=== PATIENT | male | born 1995 | race Caucasian/White ===

== ENCOUNTER 2017-07-28 07:32 | Emergency (ER) | payer OTHER ==
[~2017-07-28] VITALS: Ht 177.8 cm; Wt 93.0 kg
--- OUTSIDE RECORDS SUMMARY | ~2017-07-28 | XMS | Clinical Summary ---
Demographics + + + | Address | [address] | | | [place] [address] | + + + | Home Phone | | + + + | Preferred Language | Unknown | + + + | Marital Status | Single | + + + | Confucianist Affiliation | Unknown | + + + | Race | Unknown | + + + | Ethnic Group | Unknown | + + + Author + + + | Author | [facility] | | | and [place] | + + + | Organization | [facility] | | | and [place] | + + + | Address | Unknown | + + + | Phone | Unavailable | + + + Support + + +---------+ + | Name | Relationship | Address | Phone | + + +---------+ + | HORTENCIA GRANADO ECON | Unknown | | | L/LETITIA Link | | | | + + +---------+ + Care Team Providers + +------+ + | Care Digester Name | Role | Phone | + +------+ + PP | Unavailable | + +------+ + Allergies Not on File Current Medications Not on file Active Problems Not on file Social History + +-------+ +--------+------+ | Tobacco Use | Types | Packs/Day | Years | Date | | | | | Used | | + +-------+ +--------+------+ | Never Assessed | | | | | + +-------+ +--------+------+ + + + | Sex Assigned at | Date Recorded | | | | + + + | Not on file | | + + + Plan of Treatment + + + + + | Health Maintenance | Due Date | Last Done | Comments | + + + + + | Vaccine: HPV (1 of 3 | | | | | - Male 3 Dose | 7 | | | | Series) | | | | + + + + + | Vaccine: | | | | | Dtap/Tdap/Td (1 - | 5 | | | | Tdap) | | | | + + + + + | Vaccine: Influenza | | | | | (Season Ended) | 8 | | | + + + + + Results Not on filefrom Last 3 Months"
--- OUTSIDE RECORDS SUMMARY | ~2017-07-28 | XMS | Clinical Summary ---
Demographics + + + | Address | [address] | | | [place] [address] | + + + | Home Phone | | + + + | Preferred Language | Unknown | + + + | Marital Status | Single | + + + | Congregational Affiliation | Unknown | + + + | Race | Unknown | + + + | Ethnic Group | Unknown | + + + Author + + + | Author | [facility] | | | and [place] | + + + | Organization | [facility] | | | and [place] [...] Team Providers + +------+ + | Care Archaeologist Name | Role | Phone | + [...]
[~2017-07-28 07:32] MED LIST: IBUPROFEN400 MG PO; NORCO 5-325 TA1 EACH PO; TYLENOL325 MG PO
[2017-07-28] MEDS ORDERED: ZOFRAN ODT4 MG PO (09:20)
[2017-07-28] MEDS ORDERED: MEDROL4 MG PO (09:20)
[2017-07-28] MEDS ORDERED: MECLIZINE HCL25 MG PO (09:20)
== END 2017-07-28 10:01 | disposition home or self-care (01) ==
LOC: ED 07:32
DX: R42 Dizziness and giddiness (principal)
CPT/HCPCS: 80053; 85025; 96361; 96374; 96375; 99283; J1200; J2405; J7030

== ENCOUNTER 2018-11-26 21:58 | Emergency (ER) | payer OTHER ==
[~2018-11-26] VITALS: Ht 177.8 cm; Wt 90.7 kg
[~2018-11-26 21:58] MED LIST changes: +MECLIZINE HCL25 MG PO; +MEDROL4 MG PO; +ZOFRAN ODT4 MG PO
[2018-11-26] MEDS ORDERED: INDOMETHACIN25 MG PO (22:02)
[2018-11-26] MEDS ORDERED: OMEPRAZOLE20 MG PO (22:02)
[2018-11-27] MEDS ORDERED: TRAMADOL HCL50 MG PO (00:02)
--- NOTE | 2018-11-27 17:46 | EKG ---
[facility] [address] [facility] [place] [address] Signed Sinus bradycardia Otherwise normal ECG No previous ECGs available Confirmed by RICARDO HILLMAN MD ([id number]) on 11/27/2018 5:45:42 PM Electronically Signed By: RICARDO HILLMAN MD 11/27/18 1746 PATIENT NAME: LENY GRANADO Electrocardiogram DATE OF : [birth year] PHYSICIAN: RICARDO HILLMAN MD REPORT #: [id number] REPORT IS CONFIDENTIAL AND NOT TO BE RELEASED WITHOUT AUTHORIZATION
== END 2018-11-27 00:20 | disposition home or self-care (01) ==
LOC: ED 21:58
DX: R07.89 Other chest pain (principal); Z79.899 Other long term (current) drug therapy; Z90.89 Acquired absence of other organs
CPT/HCPCS: 80053; 84484; 85025; 85379; 93005; 93010; 99285-25

== ENCOUNTER 2019-12-12 23:27 | Emergency (ER) | payer OTHER ==
[~2019-12-12] VITALS: Ht 177.8 cm; Wt 93.4 kg
--- OUTSIDE RECORDS SUMMARY | ~2019-12-12 | XMS | Encounter Summary ---
Demographics + + + | Address | [address] | | | [place] [address] | + + + | Home Phone | | + + + | Preferred Language | Unknown | + + + | Marital Status | Single | + + + | Hinduism Affiliation | Unknown | + + + | Race | Unknown | + + + | Ethnic Group | Unknown | + + + Author + + + | Author | [facility] | | | and [place] | + + + | Organization | [facility] | | | and [place] | + + + | Address | Unknown | + + + | Phone | Unavailable | + + + Support + + +---------+ + | Name | Relationship | Address | Phone | + + +---------+ + | Timmy Link/Lara Link | ECON | Unknown | | | [place] | | | | + + +---------+ + Care Team Providers + +------+ + | Care Box Puller Name | Role | Phone | + +------+ + PCP | Unavailable | + +------+ + Encounter Details +--------+ + + + + | Date | Type | Department | Care Team | Description | +--------+ + + + + | 08/16/ | Hospital | [facility] | | | | 1997 | Encounter | [facility] | | | | | | CONV DEPT [address] | | | | | | [place], | | | | | | [place] [address] | | | | | | [phone] | | | +--------+ + + + + Social History + +-------+ +--------+------+ | Tobacco [...] on file | | + + + documented as of this encounter Plan of Treatment Not on filedocumented as of this encounter Visit Diagnoses Not on filedocumented in this encounter"
--- OUTSIDE RECORDS SUMMARY | ~2019-12-12 | XMS | Clinical Summary ---
Demographics + + + | Address | [address] | | | [place] [address] | + + + | Home Phone | | + + + | Preferred Language | Unknown | + + + | Marital Status | Single | + + + | Congregational Affiliation | Unknown | + + + | Race | Unknown | + + + | Ethnic Group | Unknown | + + + Author + + + | Author | [facility] | | | and [place] | + + + | Organization | [facility] | | | and [place] | [...] Team Providers + +------+ + | Care Radiology Aide Name | Role | Phone | + +------+ + PCP | Unavailable | + +------+ + Allergies Not on File Medications Not on file Active Problems Not [...] on file | | + + + Last Filed Vital Signs Not on file Plan of Treatment + + +-------+ + | Health Maintenance | Due Date | Last | Comments | | | | Done | | + + +-------+ + | Vaccine: | | | | | Dtap/Tdap/Td (1 - | 5 | | | | Tdap) | | | | + + +-------+ + | Vaccine: Influenza | | | | | (#1) | 0 | | | + + +-------+ + Results Not on filefrom Last 3 Months"
[~2019-12-12 23:27] MED LIST changes: +HYDROXYZINE HCL10 MG PO; +INDOMETHACIN25 MG PO; +OMEPRAZOLE20 MG PO; +PROZAC10 MG PO; +TRAMADOL HCL50 MG PO
--- OUTSIDE RECORDS SUMMARY | 2019-12-12 23:30 | XMS ---
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 Deisy has no Care Guidelines for this patient. [facility] NOTE: Visits indicate total known visits. 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
== END 2019-12-13 02:04 | disposition home or self-care (01) ==
LOC: ED 23:27
DX: R10.31 Right lower quadrant pain (principal); Z79.899 Other long term (current) drug therapy
CPT/HCPCS: 76870; 80053; 81001; 83690; 83735; 85025; 96374; 96375; 99284-25; J1885; J2405